=== PATIENT | female | born 1960 | race Caucasian/White ===

== ENCOUNTER 2016-11-04 09:28 | Outpatient (CLI) | payer OTHER | END 2016-11-04 09:29 | disposition home or self-care (01) | DX: M17.12 Unilateral primary osteoarthritis, left knee (principal); M25.562 Pain in left knee ==

== ENCOUNTER 2017-01-21 06:05 | Inpatient (IN) | payer OTHER ==
[2017-01-21] MEDS ORDERED: ceFAZolin 2 GM/50 ML 50 ML IV ONE (06:29)
[2017-01-21] MEDS ORDERED: LACTATED RINGERS 1,000 ML IV ONE ×4 (06:54→09:53)
[2017-01-21] MEDS ORDERED: ROPIVACAINE 0.5% PF 20 ML AMPULE SUBQ ONE ×2 (07:08→09:42)
[2017-01-21] MEDS ORDERED: MORPHINE PF 5 MG/10 ML AMP SUBQ ONE ×2 (07:09→09:43)
[2017-01-21] MEDS ORDERED: EPINEPHrine 1 MG/ML AMP SUBQ ONE ×2 (07:09→09:43)
[2017-01-21] MEDS ORDERED: KETOROLAC 15 MG/ML VIAL IM ONE ×2 (07:09→09:42)
[2017-01-21] MEDS ORDERED: BUPIVACAINE 0.5% PF 30 ML VIAL SUBQ ONE ×2 (07:10→09:43)
[2017-01-21] MEDS ORDERED: DEXAMETHASONE 4 MG/ML VIAL IVP ONE (07:30)
[2017-01-21] MEDS ORDERED: ONDANSETRON 4 MG/2 ML VIAL IVP ONE (07:30)
[2017-01-21] MEDS ORDERED: PHENYLEPHRINE 50 MG/5 ML VIAL IV ONE (07:30)
[2017-01-21] MEDS ORDERED: KETOROLAC 30 MG/ML VIAL IVP ONE (07:30)
[2017-01-21] MEDS ORDERED: LIDOCAINE-MPF 2% 5 ML VIAL IM ONE (07:30)
[2017-01-21] MEDS ORDERED: PROPOFOL 200 MG/20 ML VIAL IVP ONE (07:30)
[2017-01-21] MEDS ORDERED: MIDAZOLAM 2 MG/2 ML VIAL IVP ONE (07:30)
[2017-01-21] MEDS ORDERED: ONDANSETRON 4 MG/2 ML VIAL IVP PRN (09:41)
[2017-01-21] MEDS ORDERED: ACETAMINOPHEN 325 MG TABLET PO PRN (09:41)
[2017-01-21] MEDS ORDERED: PROCHLORPERAZINE 10 MG/2 ML VIAL IVP PRN (09:41)
--- NOTE | 2017-01-21 09:41 | OPERATIVE REPORT ---
Operative Report - General Admit Date: 01/21/17 Procedure Date: 01/21/17 Planned Procedure: left TKA Pre-Op Diagnosis: DJD left knee Post Op Diagnosis: Same - Procedure Note Primary Surgeon: Renee Anesthesia Provider: Gen. Hope Anesthesia Technique: Combo spinal/epidural Estimated Blood Loss (in cc): 20 Drain/Tube Type: Hemovac Complications: none
[2017-01-21] MEDS ORDERED: BISACODYL 10 MG SUPP PR PRN (09:44)
[2017-01-21] MEDS ORDERED: oxyCOD/ACETAMIN 5 MG/325 MG TABLET PO PRN (09:44)
[2017-01-21] MEDS: fentaNYL 100 MCG/2 ML VIAL ONE ×3 (10:20→10:49)
--- NOTE | 2017-01-21 11:46 | XRAY Report ---
TWO-VIEW LEFT KNEE: 01/21/2017 CLINICAL INDICATION: Post-op. FINDINGS: Frontal and lateral views of the left knee are compared to previous film of 07/29/2016. A left knee replacement is now in place. Subcutaneous gas, skin clips, and suprapatellar drain are no navya. There is no evidence of acute fracture or immediate hardware complication. IMPRESSION: EXPECTED POSTOPERATIVE APPEARANCE OF LEFT KNEE REPLACEMENT. JOB #: [id number] EXT JOB #:[id number]
[2017-01-21] MEDS: LACTATED RINGERS 1,000 ML IV SCH ×3 (12:14→23:17)
--- NOTE | 2017-01-21 12:22 | OPERATIVE REPORT ---
DATE OF SURGERY: 01/21/2017 00:00:00 PREOPERATIVE DIAGNOSIS: Left knee severe osteoarthritis. POSTOPERATIVE DIAGNOSIS: Left knee severe osteoarthritis. NAME OF PROCEDURE: Left total knee replacement arthroplasty. SURGEON: Abdifatah Duran MD ANESTHESIA: General by Jayy. INDICATIONS FOR SURGERY: The patient is a 56-year-old female with progressive severe osteoarthritis o f her left knee, with x-rays showing severe joint space narrowing to [id number] contact laterally a nd with slight laxity in the knee in valgus. Patient has functional limitations and chronic pain and desires total knee arthroplasty. FINDINGS AT SURGERY: Patient's knee exam revealed 15 degrees of valgus instability with extension to 5 degrees. The patient had abundant synovial fluid and some mild synovitis. She had decj-ax-czbx deshawn culation in the lateral compartment and she had multiple osseous loose bodies. The patient did have h ypertrophic changes on the tibia and the femur. DESCRIPTION OF OPERATIVE PROCEDURE: The patient was taken to the operating room, given a general anes thetic and spinal anesthetic. A tourniquet was placed on her left thigh, a Lawson catheter was placed. Her leg was sterilely prepped and draped in standard fashion. She was given preoperative antibiotics and tranexamic acid. Patient's limb after prep and drape was prepared for surgery with appropriate s urgical timeout and a demarcated incision was curved medially, which was undertaken after the timeout and under tourniquet control. A medial parapatellar incision was made. The toe was able to be everted laterally. Osteophytes were r emoved from the patella, the femur, and loose bodies removed from the knee at this point. The anterio r cruciate ligament was removed, as well as medial and lateral menisci. The femur was prepared by fei lara in an intramedullary hole for alignment purposes, and seating the tibial cutting guide and resec ting the distal femur. The sizing block was applied and the femur sized to a size 6. Appropriate cuts were made from the multi-cut guide, and after this was completed the knee was further exposed in fle xion to allow cutting of the proximal tibia with the external alignment tower, performing the minimal resection, but sufficient to obtain a flat, smooth tibial surface cut in a slight amount of varus to correct for her inherent valgus. The patient's tibia was prepared for a stem, and trial reduction was performed and was satisfactory w ith a size 6 narrow femoral component persona and a 5 degree stem size C tibial component, and an 11 mm poly. The patella was sized to a 26 mm medialized diameter, 7.5 mm. After the trial was completed, the implants were brought into the field, the trial components removed, the knee flushed with irriga tion, and after the bone was dry, sequential cementing was performed, first with the tibia and then w ith the femur and finally with the patella. All excess cement was removed and the cement was allowed to dry. Patient's knee was found to have excellent range of motion and stability and was able to gain full ex tension. The patient's alignment had been corrected to an anatomic slight valgus. Closure was then un dertaken, placing a drain in the knee, closing medial retinaculum with #1 Ethibond, soft tissues with 0 Vicryl, 2-0 Vicryl, and skin with carolyn. Sterile dressings were applied. The patient was taken t o recovery room in stable condition. ESTIMATED BLOOD LOSS: The estimated blood loss for the procedure was less than 50 mL. COMPLICATIONS: None. SPONGE AND NEEDLE COUNTS: Correct. JOB #: [id number] EXT JOB #:[id number]
[2017-01-21] MEDS ORDERED: SODIUM CHLORIDE 0.9% 500 ML IV ONE (12:45)
[2017-01-21] MEDS: SODIUM CHLORIDE FLUSH 0.9% 10 ML SYRINGE IVP SCH ×2 (14:08→23:16)
[2017-01-21] MEDS: oxyCODONE 5 MG TABLET PO PRN ×2 (16:51→20:48)
[2017-01-21] MEDS: ASPIRIN 325 MG TABLET PO SCH (16:58)
[2017-01-21] MEDS: ACETAMINOPHEN 500 MG TABLET PO SCH (16:59)
[2017-01-21] MEDS: ceFAZolin 2 GM/50 ML 50 ML IV SCH (16:59)
[2017-01-22] MEDS: oxyCODONE 5 MG TABLET PO PRN ×5 (00:10→20:14)
[2017-01-22] MEDS: ceFAZolin 2 GM/50 ML 50 ML IV SCH (00:11)
[2017-01-22] MEDS: SODIUM CHLORIDE FLUSH 0.9% 10 ML SYRINGE IVP SCH ×3 (05:18→17:13)
[2017-01-22 06:02] LABS: HCT - HEMATOCRIT 31.3 % (37.0-47.0); HGB - HEMOGLOBIN 10.5 g/dL (12.0-16.0)
[2017-01-22 06:07] LABS: CREATININE 0.6 mg/dL (0.4-1.0)
[2017-01-22] MEDS: ASPIRIN 325 MG TABLET PO SCH ×2 (08:04→17:03)
[2017-01-22] MEDS: ACETAMINOPHEN 500 MG TABLET PO SCH ×3 (08:04→16:56)
[2017-01-22] MEDS: SENNA 8.6 MG TABLET PO PRN (08:05)
[2017-01-22] MEDS: POLYETHYLENE GLYCOL 3350 17 GM PACKET PO SCH (08:13)
[2017-01-22] MEDS: SODIUM CHLORIDE FLUSH 0.9% 10 ML SYRINGE IVP PRN ×2 (08:22→14:36)
--- NOTE | 2017-01-22 09:01 | PROVIDER PROGRESS NOTE ---
Subjective - General Admit Date: 01/21/17 Procedure Date: 01/21/17 Post Op Days: 2 Procedure Performed: Left Total Knee Arthroplasty - Review of Systems Wound/Incisions: positive: Dressing dry and intact Objective - Patient Data Reviewed Vital Signs: Yes Vital Signs: Vital Signs x48h Temp Pulse Resp BP Pulse Ox 01/22/17 08:11 36.9 C 80 16 102/65 97 01/22/17 04:43 37.0 C 66 18 100/61 Weight: Weight 01/20/17 01/21/17 01/22/17 23:59 23:59 23:59 Weight (kg) 63.1 kg Intake & Output: Intake and Output Totals x24h 01/20/17 01/21/17 01/22/17 23:59 23:59 23:59 Intake Total 4967 918 Output Total 960 350 Balance 4007 568 - Lab Results Lab Results: 01/22/17 05:42 01/22/17 05:42 Other Lab Results: Lab Results x24hrs 01/22/17 01/22/17 Range/Units 05:42 05:42 Hgb 10.5 L (12.0-16.0) g/dL Hct 31.3 L (37.0-47.0) % Sodium 135 (135-145) mmol/L Potassium 4.0 (3.5-5.0) mmol/L Chloride 104 (101-111) mmol/L Carbon Dioxide 26 (21-32) mmol/L Anion Gap 5.0 L (6-13) BUN 14 (6-20) mg/dL Creatinine 0.6 (0.4-1.0) mg/dL Estimated GFR (MDRD) 103 (>89) Glucose 118 H (70-100) mg/dL Calcium 8.0 L (8.5-10.3) mg/dL - Imaging Results Radiology Imaging: positive: EMP read indepedently - Current Medications Current Medications: Current Medications Generic Name Dose Route Start Last Admin Trade Name Freq PRN Reason Stop Dose Admin Acetaminophen 1,000 mg 01/21/17 17:00 01/22/17 08:04 Tylenol PO 1,000 mg TIDWM SHAI Administration Aspirin 325 mg 01/21/17 17:00 01/22/17 08:04 Gail PO 01/24/17 23:59 325 mg BIDWM SHAI Administration Lactated Ringer's 1,000 mls @ 100 mls/hr 01/21/17 12:00 01/21/17 23:17 Lr IV 100 mls/hr .Q10H SHAI Administration Ondansetron HCl 4 mg 01/21/17 09:41 01/22/17 08:22 Zofran Inj IVP 4 mg Q6HR PRN Administration Nausea / Vomiting Oxycodone HCl 5 - 10 mg 01/21/17 16:24 01/22/17 08:13 Roxicodone PO 10 mg Q4HR PRN Administration PAIN Polyethylene Glycol 17 gm 01/22/17 09:00 01/22/17 08:13 Miralax PO 17 gm DAILY SHAI Administration Senna 17.2 mg 01/21/17 09:44 01/22/17 08:05 Senokot PO 17.2 mg Q12H PRN Administration Constipation Sodium Chloride 10 ml 01/21/17 09:41 01/22/17 08:22 Normal Saline Flush 0.9% IVP 10 ml PRN PRN Administration NEEDED PER PROVIDER ORDERS Sodium Chloride 10 ml 01/21/17 14:00 01/22/17 05:18 Normal Saline Flush 0.9% IVP Not Given Q8HR SHAI - Physical Exam Wound/Incisions: positive: Dressing dry and intact General Appearance: positive: No acute distress Skin: positive: No rash, Warm, Dry Extremities: positive: Joint swelling Neurologic/Psychiatric: positive: Oriented x3, Motor nml Impression/Plan - Problem List Problem List: POD #1 Post-Left TKA. progress to physical therapy dressing left intact. drain out
[2017-01-22] MEDS: HYDROmorphone 1 MG/ML SYRINGE IVP PRN ×3 (09:57→22:08)
[2017-01-22] MEDS: LACTATED RINGERS 1,000 ML IV SCH ×2 (10:25→20:14)
[2017-01-23] MEDS: oxyCODONE 5 MG TABLET PO PRN ×6 (00:17→23:28)
[2017-01-23] MEDS: HYDROmorphone 1 MG/ML SYRINGE IVP PRN ×2 (02:42→14:22)
[2017-01-23] MEDS: SODIUM CHLORIDE FLUSH 0.9% 10 ML SYRINGE IVP SCH ×3 (06:18→20:51)
[2017-01-23] MEDS: ASPIRIN 325 MG TABLET PO SCH ×2 (08:00→16:02)
[2017-01-23] MEDS: POLYETHYLENE GLYCOL 3350 17 GM PACKET PO SCH (08:00)
[2017-01-23] MEDS: ACETAMINOPHEN 500 MG TABLET PO SCH ×3 (08:00→16:02)
[2017-01-23] MEDS: SENNA 8.6 MG TABLET PO PRN ×2 (08:01→20:50)
--- NOTE | 2017-01-23 08:43 | PROVIDER PROGRESS NOTE ---
Subjective - General Admit Date: 01/21/17 Procedure Date: 01/21/17 Post Op Days: 2 Procedure Performed: Left Total Knee Arthroplasty - Review of Systems Wound/Incisions: positive: Dressing dry and intact Musculoskeletal: positive: Joint pain Psychiatric: positive: No symptoms Objective - Patient Data Reviewed Vital Signs: Yes Vital Signs: Vital Signs x48h Temp Pulse Resp BP Pulse Ox 01/23/17 08:00 37.0 C 89 18 132/80 H 96 01/23/17 04:14 37.0 C 86 16 131/80 H 94 Weight: Weight 01/21/17 01/22/17 01/23/17 23:59 23:59 23:59 Weight (kg) 63.1 kg Intake & Output: Intake and Output Totals x24h 01/21/17 01/22/17 01/23/17 23:59 23:59 23:59 Intake Total 4967 2880 1300 Output Total 960 895 650 Balance 4007 1985 650 - Lab Results Lab Results: 01/22/17 05:42 01/22/17 05:42 - Current Medications Current Medications: Current Medications Generic Name Dose Route Start Last Admin Trade Name Freq PRN Reason Stop Dose Admin Acetaminophen 1,000 mg 01/21/17 17:00 01/23/17 08:00 Tylenol PO 1,000 mg TIDWM SHAI Administration Aspirin 325 mg 01/21/17 17:00 01/23/17 08:00 Gail PO 01/24/17 23:59 325 mg BIDWM SHAI Administration Hydromorphone HCl 1 mg 01/21/17 09:44 01/23/17 02:42 Dilaudid Inj IVP 1 mg Q2HR PRN Administration Breakthrough Pain Ondansetron HCl 4 mg 01/21/17 09:41 01/22/17 08:22 Zofran Inj IVP 4 mg Q6HR PRN Administration Nausea / Vomiting Oxycodone HCl 5 - 10 mg 01/21/17 16:24 01/23/17 06:17 Roxicodone PO 10 mg Q4HR PRN Administration PAIN Polyethylene Glycol 17 gm 01/22/17 09:00 01/23/17 08:00 Miralax PO 17 gm DAILY SHAI Administration Senna 17.2 mg 01/21/17 09:44 01/23/17 08:01 Senokot PO 17.2 mg Q12H PRN Administration Constipation Sodium Chloride 10 ml 01/21/17 09:41 01/22/17 14:36 Normal Saline Flush 0.9% IVP 10 ml PRN PRN Administration NEEDED PER PROVIDER ORDERS Sodium Chloride 10 ml 01/21/17 14:00 01/23/17 06:18 Normal Saline Flush 0.9% IVP Not Given Q8HR SHAI - Physical Exam Wound/Incisions: positive: Dressing dry and intact General Appearance: positive: No acute distress Extremities: positive: Joint swelling Neurologic/Psychiatric: positive: Oriented x3, Motor nml, Sensation nml, Mood/ affect nml Impression/Plan - Problem List Problem List: POD #2 The patient is progressing well, and will begin further therapy, and transition to home tomorrow. PT has been scheduled to begin friday with Meeta (at pt's request).
--- NOTE | 2017-01-23 14:14 | Discharge Plan ---
Discharge Plan Disposition: Home, Self Care Condition: Good Prescriptions: oxyCODONE [Roxicodone] 5 mg PO Q4HR PRN #30 tablet PRN Reason: Pain Aspirin [Gail] 325 mg PO BIDWM #60 tablet Polyethylene Glycol 3350 [Miralax] 17 gm PO DAILY #20 packet Walker 1 each MC DAILY #1 each Diet: Regular Activity Restrictions: Wt Bearing as Tolerated Shower Restrictions: Yes (keep wound dry/clean) Driving Restrictions: Yes (no driving) Assistance Devices: Walker Weight Bearing: Full Weight Additional Instructions or Follow Up instructions: Keep dressing dry and intact Begin PT as outpatient next week as scheduled Office f/u next week Use walker with weight bearing as tolerated on LLE may shower with knee dressing kept covered Follow-Up Care: Outpatient Rehab - PT No Smoking: If you smoke, Please STOP! Call for help. Follow-up with: Olu Weber MD [Primary Care Provider] - Abdifatah Duran MD [Provider Admit Priv/Credential] -
[2017-01-23] MEDS: SODIUM CHLORIDE FLUSH 0.9% 10 ML SYRINGE IVP PRN (14:22)
[2017-01-23] MEDS: DOCUSATE SODIUM 250 MG CAPSULE PO SCH (20:50)
[2017-01-24] MEDS: oxyCODONE 5 MG TABLET PO PRN ×2 (04:52→09:17)
[2017-01-24] MEDS: SODIUM CHLORIDE FLUSH 0.9% 10 ML SYRINGE IVP SCH (04:53)
[2017-01-24 07:36] VITALS: BP 108/74
--- NOTE | 2017-01-24 08:41 | PROVIDER PROGRESS NOTE ---
Subjective - General Admit Date: 01/21/17 Procedure Date: 01/21/17 Post Op Days: 3 Procedure Performed: Left Total Knee Arthroplasty - Review of Systems Wound/Incisions: positive: Healing well General: positive: Other (diminishing pain) HEENT: positive: No symptoms Pulmonary: positive: No symptoms Cardiovascular: positive: No symptoms Gastrointestinal: positive: No symptoms Genitourinary: positive: No symptoms Musculoskeletal: positive: Joint pain Psychiatric: positive: No symptoms Objective - Patient Data Reviewed Vital Signs: Yes Vital Signs: Vital Signs x48h Temp Pulse Resp BP Pulse Ox 01/24/17 07:32 37.2 C 88 16 108/74 97 01/24/17 04:00 37 C 89 16 125/73 98 Intake & Output: Intake and Output Totals x24h 01/22/17 01/23/17 01/24/17 23:59 23:59 23:59 Intake Total 2880 2030 120 Output Total 895 650 Balance 1985 1380 120 - Lab Results Lab Results: 01/22/17 05:42 01/22/17 05:42 - Current Medications Current Medications: Current Medications Generic Name Dose Route Start Last Admin Trade Name Freq PRN Reason Stop Dose Admin Acetaminophen 1,000 mg 01/21/17 17:00 01/23/17 16:02 Tylenol PO 1,000 mg TIDWM SHAI Administration Aspirin 325 mg 01/21/17 17:00 01/23/17 16:02 Gail PO 01/24/17 23:59 325 mg BIDWM SHAI Administration Docusate Sodium 250 - 500 mg 01/23/17 21:00 01/23/17 20:50 Colace 250mg Capsule PO 250 mg DAILY SHAI Administration Hydromorphone HCl 1 mg 01/21/17 09:44 01/23/17 14:22 Dilaudid Inj IVP 1 mg Q2HR PRN Administration Breakthrough Pain Ondansetron HCl 4 mg 01/21/17 09:41 01/22/17 08:22 Zofran Inj IVP 4 mg Q6HR PRN Administration Nausea / Vomiting Oxycodone HCl 5 - 10 mg 01/21/17 16:24 01/24/17 04:52 Roxicodone PO 10 mg Q4HR PRN Administration PAIN Polyethylene Glycol 17 gm 01/22/17 09:00 01/23/17 08:00 Miralax PO 17 gm DAILY SHAI Administration Senna 17.2 mg 01/21/17 09:44 01/23/17 20:50 Senokot PO 17.2 mg Q12H PRN Administration Constipation Sodium Chloride 10 ml 01/21/17 09:41 01/23/17 14:22 Normal Saline Flush 0.9% IVP 10 ml PRN PRN Administration NEEDED PER PROVIDER ORDERS Sodium Chloride 10 ml 01/21/17 14:00 01/24/17 04:53 Normal Saline Flush 0.9% IVP 10 ml Q8HR SHAI Administration - Physical Exam Wound/Incisions: positive: Healing well General Appearance: positive: No acute distress Abdomen: positive: Non-tender Skin: positive: Warm, Dry Extremities: positive: Joint swelling Neurologic/Psychiatric: positive: Oriented x3, Motor nml, Sensation nml, Mood/ affect nml Impression/Plan - Problem List Problem List: POD #3 Pt doing very well. Pain controlled Plan D/c to home.
[2017-01-24] MEDS: ACETAMINOPHEN 500 MG TABLET PO SCH (09:17)
[2017-01-24] MEDS: DOCUSATE SODIUM 250 MG CAPSULE PO SCH (09:18)
[2017-01-24] MEDS: ASPIRIN 325 MG TABLET PO SCH (09:18)
[2017-01-24] MEDS: POLYETHYLENE GLYCOL 3350 17 GM PACKET PO SCH (09:19)
--- NOTE | 2017-02-04 11:41 | DISCHARGE SUMMARY ---
DATE OF ADMISSION: 01/21/2017 DATE OF DISCHARGE: 01/24/2017 PREOPERATIVE DIAGNOSIS: Left knee osteoarthritis. PROCEDURE PERFORMED: On 01/21/2017, a left total knee arthroplasty. REASON FOR ADMISSION: The patient is a 56-year-old female with progressive pain and swelling of her l eft knee with osteoarthritis. The patient has reached a point of failing medical care and increasing functional limitation and desires total knee arthroplasty. The patient's history and physical exam ar e delineated in her admit note. HOSPITAL COURSE: The patient was admitted and underwent surgery, which was well tolerated. Postoperat ively, the patient returned to the medical/surgical floor, receiving standard postoperative care afte r total knee replacement. This included IV antibiotics, pain medication, and early physical therapy m obilization. The patient advanced well and did not have any unusual problems in the recovery period. At the point of discharge, she was healing well with an incision that was clean and dry and range of motion of 0-80 degrees. She was tolerating p.o. pain medicine and ambulating independent with a walke r. At this point, she was discharged to home. Her followup was to be in my office within 1 week. Her discharge medications were her regular medications with the additional use of pain medication as need ed. She was to be using aspirin for DVT prophylaxis. JOB #: [id number] EXT JOB #:[id number]
== END 2017-01-24 10:45 | disposition home or self-care (01) | DRG 470 ==
LOC: MS 06:05
PROVIDERS: ADMIT Orthopaedic Surgery; ATTEND Orthopaedic Surgery
PROC: 0SRD0J9 Replacement of Left Knee Joint with Synthetic Substitute, Cemented, Open Approach (ICD-10-PCS; principal; 2017-01-21 07:30)
DX: M17.12 Unilateral primary osteoarthritis, left knee (principal)
CPT/HCPCS: 36415; 80048; 85014; 85018

== ENCOUNTER 2023-06-17 09:00 | Outpatient (CLI) | payer OTHER ==
--- NOTE | 2023-06-17 20:16 | XRAY Report ---
PROCEDURE: Shoulder 3 View BILAT INDICATIONS: BILAT SHOULDER PAIN TECHNIQUE: 3 views of the shoulder were acquired. For views of the other shoulder were acquired as w ell. COMPARISON: None FINDINGS: Bones: On the right, there is a hemiarthroplasty in good position. No evidence of hardware failure or loosening. Right lung apex clear. On the left, there is severe degenerative arthritic changes with r emodeling both of the glenoid fossa and humeral head. Large inferior osteophyte present as well Soft tissues: No suspicious soft tissue calcifications. IMPRESSION: Severe left glenohumeral osteoarthritis with remodeling. Right shoulder arthroplasty in good position Reviewed by: Leonard See MD on 06/17/2023 7:15 PM [place] Approved by: Lenoard See MD on 06/17/2023 7:15 PM [place] Station ID: [id number]
== END 2023-06-17 23:59 | disposition home or self-care (01) ==
LOC: DI.WOS 09:00
PROVIDERS: ATTEND Physician Assistant Surgical
DX: M25.511 Pain in right shoulder (principal); M19.012 Primary osteoarthritis, left shoulder; Z96.611 Presence of right artificial shoulder joint

== ENCOUNTER 2023-07-03 14:15 | Outpatient (CLI) | payer OTHER ==
--- NOTE | 2023-07-04 10:37 | XRAY Report ---
PROCEDURE: Chest 2 View X-Ray INDICATIONS: MILD PERSISTENT ASTHMA, UNCOMPLICATED TECHNIQUE: 2 views of the chest were acquired. COMPARISON: None. FINDINGS: Surgical changes and devices: Right humeral head arthroplasty. Lungs and pleura: No pleural effusions or pneumothorax. Lungs are clear. Mediastinum: Mediastinal contours appear normal. Heart size is normal. Bones and chest wall: No suspicious bony lesions. Severe left shoulder degeneration. Overlying soft tissues appear unremarkable. IMPRESSION: No acute cardiopulmonary process. Reviewed by: Noy Palacios MD on 07/04/2023 10:35 AM [facility] Approved by: Noy Palacios MD on 07/04/2023 10:35 AM [facility] Station ID: [id number]
== END 2023-07-03 14:30 | disposition home or self-care (01) ==
LOC: DI.N 14:15
PROVIDERS: ATTEND Nurse Practitioner
DX: R05.8 Other specified cough (principal)